=== PATIENT | male | born 1970 | race American Indian/Alaskan Native ===

== ENCOUNTER 2019-03-30 16:59 | Inpatient (IN) | payer SELFPAY ==
--- NOTE | 2019-03-30 19:01 | EDM.PDOC ---
ED HPI GENERAL MEDICAL PROBLEM - General Chief Complaint: Skin Complaint Stated Complaint: ABSCESS IN GROIN AREA Time Seen by Provider: 03/30/19 18:54 Source of Information: Reports: Patient History Limitations: Reports: No Limitations - History of Present Illness INITIAL COMMENTS - FREE TEXT/NARRATIVE: 49-year-old male of [place] ancestry presents to the ED with painful swelling redness left groin and lateral left scrotum for the last 4 days. He believes it started on March 27. He has appreciated that he has flulike symptoms low-grade fever appetite remains good. Last ate about 2 and half hours before coming to the ED. He is a type II diabetic and does not know what his blood sugars are running today. On they were running high greater than 300. Been a type II diabetic x7 years. He has not checked his blood sugars the last 48 hours because of lack of his glucometer. Ports being stranded in [place] for the last day or 2. Hurts to walk. No problems voiding. He has not had similar abscesses before. No previous abdominal surgery. Onset: Gradual Onset Date: 03/27/19 Duration: Day(s):, Getting Worse Location: Reports: Other (Abscess development left lateral scrotum and inguinal area) Quality: Reports: Ache, Throbbing Severity: Moderate Improves with: Reports: Rest Worsens with: Reports: Movement Context: Reports: Other (Doris is occurrence). Denies: Activity, Exercise ( He makes it much worse), Lifting, Sick Contact, Trauma Associated Symptoms: Reports: Fever/Chills, Malaise. Denies: Headaches (Low- grade fever), Loss of Appetite, Nausea/Vomiting, Rash, Seizure, Shortness of Breath, Syncope, Weakness Treatments ABALONE PROCESSOR: Reports: Acetaminophen Left Groin Pain Score (Numeric/FACES): 8 - Related Data Allergies Allergy/AdvReac Type Severity Reaction Status Date / Time No Known Allergies Allergy Verified 03/30/19 23:20 Home Meds: Home Meds Aspirin 81 mg PO DAILY 03/30/19 [History] metFORMIN [Glucophage XR] 1,000 mg PO DAILY 03/30/19 [History] Past Medical History Cardiovascular History: Reports: High Cholesterol, Hypertension Endocrine/Metabolic History: Reports: Diabetes, Type II (7 years.) Other Endocrine/Metabolic History: Controlled with 1000 mg of metformin daily Social & Family History - Tobacco Use Smoking Status *Q: Former Smoker Used Tobacco, but Quit: Yes Month/Year Tobacco Last Used: 1989 - Caffeine Use Caffeine Use: Reports: Coffee, Energy Drinks, Soda - Living Situation & Occupation Living situation: Reports: Occupation: Employed ED ROS GENERAL - Review of Systems Review Of Systems: See Below Constitutional: Reports: Fever, Malaise. Denies: Decreased Appetite, Weight Loss HEENT: Reports: No Symptoms Respiratory: Reports: No Symptoms Cardiovascular: Reports: No Symptoms Endocrine: Reports: Fatigue GI/Abdominal: Reports: No Symptoms : Reports: Frequency, Other (And swelling acute abscess formation lateral left scrotum and inguinal area.) Musculoskeletal: Reports: No Symptoms Skin: Reports: Other (Popping abscess left lateral scrotum with indurated area which is spreading rapidly over the last 12 to 24 hours) Neurological: Reports: No Symptoms Psychiatric: Reports: No Symptoms Hematologic/Lymphatic: Reports: No Symptoms Immunologic: Reports: No Symptoms ED EXAM, SKIN/RASH Exam: See Below Exam Limited By: No Limitations General Appearance: Alert, WD/WN, No Apparent Distress, Other (Patient temperature is measured at 36.1 but clinically he is febrile. Heart rate is 87. Respiratory is 18 BP 148/92 pulse ox 100% on room air.) Eye Exam: Bilateral Eye: Normal Inspection Throat/Mouth: Normal Inspection, Normal Lips, Normal Oropharynx Head: Atraumatic, Normocephalic Neck: Normal Inspection, Supple, Non-Tender, Full Range of Motion. No: Carotid Bruit, Lymphadenopathy (L), Lymphadenopathy (R) Respiratory/Chest: No Respiratory Distress, Lungs Clear, Normal Breath Sounds, No Accessory Muscle Use Cardiovascular: Normal Peripheral Pulses, Regular Rate, Rhythm, No Edema, No Gallop, No Murmur, No Rub Peripheral Pulses: 3+: Posterior Tibial (L), Posterior Tibial (R), Dorsalis Pedis (L), Dorsalis Pedis (R) GI/Abdominal: Normal Bowel Sounds, Soft, Non-Tender, No Organomegaly, No Abnormal Bruit, No Mass, Pelvis Stable, Other (No surgical scars) (Male) Exam: No Hernia, Inguinal Lymphadenopathy ( There is diffuse left- sided inguinal adenopathy), Scrotum Tenderness (L) (And has a indurated area approximately 12 cm x 10 cm left lateral superior scrotum which is warm to palpation and slightly erythematous. There is an area that is pointing towards the inner aspect of the medial thigh.), Other (Anemia is normal.) Extremities: Normal Inspection, Normal Range of Motion, Non-Tender, No Pedal Edema Neurological: Alert, Oriented, CN II-XII Intact, Normal Cognition Psychiatric: Normal Affect, Normal Mood Skin: Warm, Dry, Intact, Normal Color, No Rash EKG INTERPRETATION EKG Date: 03/30/19 Time: 19:28 Rhythm: NSR Rate (Beats/Min): 77 Reading: Normal P-Wave: Enlarged (Left atrial hypertrophy pattern.) QRS: Other (Early R wave transition consider right ventricular hypertrophy versus septal hypertrophy pattern.) ST-T: Normal QT: Normal EKG Interpretation Comments: Abnormal ECG Course - Vital Signs Last Recorded V/S: Last Vital Signs Temp 36.4 C 03/30/19 22:46 Pulse 84 03/30/19 22:46 Resp 20 03/30/19 22:46 BP 129/72 03/30/19 22:46 Pulse Ox 94 L 03/30/19 22:46 - Orders/Labs/Meds Orders: Active Orders 24 hr Category Date Time Status Blood Glucose Check, Bedside [RC] ONETIME Care 03/30/19 19:06 Inactive Pelvis w Cont [CT] Stat Exams 03/30/19 19:06 Taken CULTURE BLOOD [BC] Stat Lab 03/30/19 19:17 Received CULTURE BLOOD [BC] Stat Lab 03/30/19 19:26 Received Blood Culture x2 Reflex Set [OM.PC] Stat Oth 03/30/19 19:05 Ordered Medication Orders Docusate Sodium (Colace) 100 mg PO BID SELINA Hydromorphone HCl (Dilaudid) 1 mg IVPUSH Q4H PRN PRN Reason: Pain (severe 7-10) Piperacillin Sod/Tazobactam (Sod 4.5 gm/ Sodium Chloride) 100 mls @ 25 mls/hr IV Q8H SELINA Vancomycin HCl 2 gm/ Sodium (Chloride) 500 mls @ 250 mls/hr IV Q12H SELINA Oxycodone/Acetaminophen (Percocet 325-5 Mg) 2 tab PO Q6H PRN PRN Reason: Pain (moderate 4-6) Labs: Laboratory Tests 02/23/20 02/23/20 02/23/20 Range/Units 19:17 19:17 19:17 WBC 11.77 H (4.23-9.07) K/mm3 RBC 4.59 L (4.63-6.08) M/mm3 Hgb 12.5 L (13.7-17.5) gm/dl Hct 38.0 L (40.1-51.0) % MCV 82.8 (79.0-92.2) fl MCH 27.2 (25.7-32.2) pg MCHC 32.9 (32.2-35.5) g/dl RDW Std Deviation 40.2 (35.1-43.9) fL Plt Count 265 (163-337) K/mm3 MPV 10.2 (9.4-12.3) fl Neutrophils % (Manual) 69 H (40-60) % Band Neutrophils % 0 (0-10) % Lymphocytes % (Manual) 25 (20-40) % Atypical Lymphs % 2 % Monocytes % (Manual) 2 (2-10) % Eosinophils % (Manual) 2 (0.8-7.0) % Basophils % (Manual) 0 L (0.2-1.2) Toxic Granulation Few Platelet Estimate Adequate RBC Morph Comment Normal PT (9.7-12.0) SECONDS INR APTT (22-31) SECONDS Sodium 138 (136-145) mEq/L Potassium 4.2 (3.5-5.1) mEq/L Chloride 103 (98-107) mEq/L Carbon Dioxide 24 (21-32) mEq/L Anion Gap 15.2 H (5-15) BUN 14 (7-18) mg/dL Creatinine 1.0 (0.7-1.3) mg/dL Est Cr Clr Drug Dosing 87.40 mL/min Estimated GFR (MDRD) > 60 (>60) mL/min BUN/Creatinine Ratio 14.0 (14-18) Glucose 278 H (74-106) mg/dL Hemoglobin A1c 8.40 H (4.50-6.20) % Lactic Acid (0.4-2.0) mmol/L Calcium 8.8 (8.5-10.1) mg/dL Magnesium 2.0 (1.8-2.4) mg/dl Total Bilirubin 0.4 (0.2-1.0) mg/dL AST 20 (15-37) U/L ALT 34 (16-63) U/L Alkaline Phosphatase 113 (46-116) U/L C-Reactive Protein 9.8 H* (<1.0) mg/dL Total Protein 8.4 H (6.4-8.2) g/dl Albumin 3.4 (3.4-5.0) g/dl Globulin 5.0 gm/dL Albumin/Globulin Ratio 0.7 L (1-2) 03/30/19 03/30/19 Range/Units 19:17 19:17 WBC (4.23-9.07) K/mm3 RBC (4.63-6.08) M/mm3 Hgb (13.7-17.5) gm/dl Hct (40.1-51.0) % MCV (79.0-92.2) fl MCH (25.7-32.2) pg MCHC (32.2-35.5) g/dl RDW Std Deviation (35.1-43.9) fL Plt Count (163-337) K/mm3 MPV (9.4-12.3) fl Neutrophils % (Manual) (40-60) % Band Neutrophils % (0-10) % Lymphocytes % (Manual) (20-40) % Atypical Lymphs % % Monocytes % (Manual) (2-10) % Eosinophils % (Manual) (0.8-7.0) % Basophils % (Manual) (0.2-1.2) Toxic Granulation Platelet Estimate RBC Morph Comment PT 10.3 (9.7-12.0) SECONDS INR 0.94 APTT 29 (22-31) SECONDS Sodium (136-145) mEq/L Potassium (3.5-5.1) mEq/L Chloride (98-107) mEq/L Carbon Dioxide (21-32) mEq/L Anion Gap (5-15) BUN (7-18) mg/dL Creatinine (0.7-1.3) mg/dL Est Cr Clr Drug Dosing mL/min Estimated GFR (MDRD) (>60) mL/min BUN/Creatinine Ratio (14-18) Glucose (74-106) mg/dL Hemoglobin A1c (4.50-6.20) % Lactic Acid 1.3 (0.4-2.0) mmol/L Calcium (8.5-10.1) mg/dL Magnesium (1.8-2.4) mg/dl Total Bilirubin (0.2-1.0) mg/dL AST (15-37) U/L ALT (16-63) U/L Alkaline Phosphatase (46-116) U/L C-Reactive Protein (<1.0) mg/dL Total Protein (6.4-8.2) g/dl Albumin (3.4-5.0) g/dl Globulin gm/dL Albumin/Globulin Ratio (1-2) Meds: Medications Generic Name Dose Route Start Last Admin Trade Name Ellie PRN Reason Stop Dose Admin Docusate Sodium 100 mg 03/31/19 09:00 Colace PO BID SELINA Hydromorphone HCl 1 mg 03/30/19 23:53 Dilaudid IVPUSH Q4H PRN Pain (severe 7-10) Piperacillin Sod/Tazobactam 100 mls @ 25 mls/hr 03/31/19 06:00 Sod 4.5 gm/ Sodium Chloride IV Q8H SELINA Vancomycin HCl 2 gm/ Sodium 500 mls @ 250 mls/hr 03/31/19 08:00 Chloride IV Q12H SELINA Oxycodone/Acetaminophen 2 tab 03/30/19 23:53 Percocet 325-5 Mg PO Q6H PRN Pain (moderate 4-6) Discontinued Medications Generic Name Dose Route Start Last Admin Trade Name Ellie PRN Reason Stop Dose Admin Hydromorphone HCl 0.5 mg 03/30/19 19:09 03/30/19 19:48 Dilaudid IVPUSH 03/30/19 19:10 0.5 mg ONETIME ONE Administration Hydromorphone HCl 1 mg 03/30/19 21:09 03/30/19 21:40 Dilaudid IVPUSH 03/30/19 21:10 1 mg ONETIME ONE Administration Linezolid 600 mg/ Premix 300 mls @ 300 mls/hr 03/30/19 19:09 03/30/19 20:13 IV 03/30/19 20:08 300 mls/hr ONETIME ONE Administration Sodium Chloride 1,000 mls @ 500 mls/hr 03/30/19 19:15 03/30/19 19:48 Normal Saline IV 500 mls/hr ASDIRECTED SELINA Administration Vancomycin HCl 2 gm/ Sodium 500 mls @ 250 mls/hr 03/30/19 19:08 03/30/19 19: 56 Chloride IV 03/30/19 19:09 250 mls/hr ONETIME ONE Administration Piperacillin Sod/Tazobactam 100 mls @ 200 mls/hr 03/30/19 22:15 03/30/19 23: 35 Sod 4.5 gm/ Sodium Chloride IV 03/30/19 22:44 200 mls/hr ONETIME ONE Administration Insulin Human Regular Confirm 03/30/19 21:44 03/30/19 21:48 Humulin R Administered 03/30/19 21:45 Not Given Dose 300 unit .ROUTE .STK-MED ONE Insulin Human Regular 8 unit 03/31/19 21:52 Humulin R SUBCUT 03/31/19 21:53 ONETIME ONE Iopamidol 100 ml 03/30/19 20:18 03/30/19 20:27 Isovue-300 (61%) IVPUSH 03/30/19 20:19 100 ml ONETIME ONE Administration Lidocaine/Epinephrine 20 ml 03/30/19 21:20 03/30/19 21:40 Xylocaine 1% With Epinephrine 1:100,000 INJECT 03/30/19 21:21 20 ml ONETIME ONE Administration Metoclopramide HCl 10 mg 03/30/19 19:09 03/30/19 19:48 Reglan IVPUSH 03/30/19 19:10 10 mg ONETIME ONE Administration Sodium Chloride 10 ml 03/30/19 20:18 03/30/19 20:27 Saline Flush FLUSH 10 ml ONETIME PRN Administration KEEP VEIN OPEN Vancomycin HCl Confirm 03/30/19 19:26 03/30/19 20:03 Vancomycin Administered 03/30/19 19:27 Not Given Dose 1 gm .ROUTE .STK-MED ONE - Radiology Interpretation Free Text/Narrative:: 49-year-old male who is type II diabetic controlled with metformin 1000 mg daily for the last 7 years presents to the ED with a developing abscess left hemiscrotum and inguinal area over the last 4 to 5 days. He is febrile to palpation. He is appetite remains good. The area of induration of the left lateral scrotum is 12 cm x 10 cm and needs to be opened and drained. We will therefore have a septic work-up carried out. CT of the pelvis will be performed to involve the scrotum. With DrMoises with Dr Patton-- on-call surgeon and he will see the patient in the ED. Plan will have all the labs collected including blood cultures x2 and a lactic acid done. Is unsure what his blood sugars are running as he is not checked for the last 2 days. We will be normal saline at 500 mils per hour. Will be given Dilaudid 0.5 mg IV for pain relief and Reglan 10 mg IV. - Re-Assessments/Exams Free Text/Narrative Re-Assessment/Exam: 03/30/19 20:24 White count is mildly elevated at 11.77 with 69% neutrophils and no bands cells reported. Hemoglobin is 12.5 with hematocrit of 38.0. MCV is 82.8. Platelet count is 265,000. PT is 10.3 with an INR of 0.94. PTT is 29. Sodium 138 with a potassium of 4.2. Chloride is 103 with a bicarb of 24. Gap is 15.2. BUN is 14 with a creatinine of 1.0. Glucose is elevated at 278. Hemoglobin A1c is 8.40 indicating relatively poor control of his blood sugars. Lactic acid is 1.3. Calcium is 8.8 magnesium is normal at 2.0. Liver function is normal. C-reactive protein is elevated at 9.8. Total protein is 8.4 with an albumin fraction of 3.4. 03/30/19 20:48 T of the pelvis particularly the left hemiscrotum reveals diffuse inflammatory response in the lateral wall of the superior scrotum and mildly in the left inguinal area. There appears to be a small abscess 1.5 cm in diameter involving the scrotal wall with surrounding inflammatory response in the soft tissues. Awaiting radiology report in this regard. 03/30/19 21:10 give the patient Dilaudid 1 mg IV for further pain relief. Dr. Patton is here and plans on incising and draining the abscess at the bedside of possible under local anesthetic. Cultures will be obtained at that time. The plan then will be to admit the patient to the hospital for observation. Due to his blood sugars being 278 I will give him 8 units of regular insulin subcutaneously. 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 - Type 2 diabetes mellitus with other skin complications - Discharge Information *PRESCRIPTION DRUG MONITORING PROGRAM REVIEWED*: Not Applicable *COPY OF PRESCRIPTION DRUG MONITORING REPORT IN PATIENT DAYAMI: Not Applicable Sepsis Event Note - Evaluation Sepsis Screening Result: No Definite Risk - Focused Exam Vital Signs: Vital Signs Temp Pulse Resp BP Pulse Ox 03/30/19 17:11 36.1 C 87 18 148/92 H 100 Date Exam was Performed: 03/31/19 Time Exam was Performed: 02:50 - My Orders Last 24 Hours: My Active Orders 03/30/19 19:05 Blood Culture x2 Reflex Set [OM.PC] Stat 03/30/19 19:06 Blood Glucose Check, Bedside [RC] ONETIME Pelvis w Cont [CT] Stat 03/30/19 19:17 CULTURE BLOOD [BC] Stat 03/30/19 19:26 CULTURE BLOOD [BC] Stat - Assessment/Plan Last 24 Hours: My Active Orders 03/30/19 19:05 Blood Culture x2 Reflex Set [OM.PC] Stat 03/30/19 19:06 Blood Glucose Check, Bedside [RC] ONETIME Pelvis w Cont [CT] Stat 03/30/19 19:17 CULTURE BLOOD [BC] Stat 03/30/19 19:26 CULTURE BLOOD [BC] Stat
[2019-03-30] MEDS ORDERED: Vancomycin 2 GM in Sodium Chloride 0.9% 500 ML IV ONE (19:08)
[2019-03-30] MEDS ORDERED: Linezolid 600 MG in Premix Bag 1 BAG IV ONE (19:09)
[2019-03-30] MEDS ORDERED: Metoclopramide 10 MG/2 ML SDV IVPUSH ONE (19:09)
[2019-03-30] MEDS ORDERED: HYDROmorphone 0.5 MG/0.5 ML Syringe IVPUSH ONE (19:09)
[2019-03-30] MEDS ORDERED: Sodium Chloride 0.9% 1,000 ML IV SCH (19:15)
[2019-03-30] MEDS ORDERED: Vancomycin 1 GM SDV ONE (19:26)
[2019-03-30 20:06] LABS: HEMOGLOBIN A1C 8.4 % (4.50-6.20)
[2019-03-30] MEDS ORDERED: Iopamidol 612 MG/ML 100 ML Bottle IVPUSH ONE (20:18)
[2019-03-30] MEDS ORDERED: Sodium Chloride 0.9% 10 ML Syringe FLUSH PRN (20:18)
[2019-03-30] MEDS ORDERED: HYDROmorphone 1 MG/ML Syringe IVPUSH ONE (21:09)
--- NOTE | 2019-03-30 21:19 | PCM.CONS ---
H&P History of Present Illness - General Date of Service: 03/30/19 Source of Information: Patient History Limitations: Reports: No Limitations - History of Present Illness Initial Comments - Free Text/Narative: The patient has left groin abscess and cellulitis. He noticed some left groin pain on 03/27/19. Initially it was mild but progressed over the ensuing days. Denies any fevers or chills. Pain become worse to 10/10 today and was having trouble walking so he decided to come to the ED. He has poorly controlled diabetes, HTN, HLD. Reports that he has had smaller boils on his abdominal wall that usually disappear on their own. in the ED WBC was 11.7, Gluc 278. Rest of labs were normal. CT reveals extensive left scrotal cellulitis and a small 2-3 cm abscess. No subcutaneous air. Onset of Symptoms: Reports: Gradual Duration of Symptoms: Reports: Getting Worse Left Groin Pain Score (Numeric/FACES): 8 - Related Data Allergies/Adverse Reactions: Allergies Allergy/AdvReac Type Severity Reaction Status Date / Time No Known Allergies Allergy Verified 03/30/19 17:14 Home Medications: Home Meds metFORMIN [Glucophage XR] 1,000 mg PO DAILY 03/30/19 [History] Past Medical History Cardiovascular History: Reports: High Cholesterol, Hypertension Endocrine/Metabolic History: Reports: Diabetes, Type II (7 years.) Other Endocrine/Metabolic History: Controlled with 1000 mg of metformin daily Social & Family History - Tobacco Use Smoking Status *Q: Former Smoker Used Tobacco, but Quit: Yes Month/Year Tobacco Last Used: 1989 - Caffeine Use Caffeine Use: Reports: Coffee, Energy Drinks, Soda - Living Situation & Occupation Living situation: Reports: Occupation: Employed Exam - Vital Signs Vital Signs: Last Vital Signs Temp 97.0 F 03/30/19 17:11 Pulse 87 03/30/19 17:11 Resp 18 03/30/19 17:11 BP 148/92 H 03/30/19 17:11 Pulse Ox 100 03/30/19 17:11 Weight: 128.82 kg - Patient Data Lab Results Last 24 hrs: Laboratory Results - last 24 hr 03/30/19 03/30/19 03/30/19 Range/Units 19:17 19:17 19:17 WBC 11.77 H (4.23-9.07) K/mm3 RBC 4.59 L (4.63-6.08) M/mm3 Hgb 12.5 L (13.7-17.5) gm/dl Hct 38.0 L (40.1-51.0) % MCV 82.8 (79.0-92.2) fl MCH 27.2 (25.7-32.2) pg MCHC 32.9 (32.2-35.5) g/dl RDW Std Deviation 40.2 (35.1-43.9) fL Plt Count 265 (163-337) K/mm3 MPV 10.2 (9.4-12.3) fl Neutrophils % (Manual) 69 H (40-60) % Band Neutrophils % 0 (0-10) % Lymphocytes % (Manual) 25 (20-40) % Atypical Lymphs % 2 % Monocytes % (Manual) 2 (2-10) % Eosinophils % (Manual) 2 (0.8-7.0) % Basophils % (Manual) 0 L (0.2-1.2) Toxic Granulation Few Platelet Estimate Adequate RBC Morph Comment Normal PT (9.7-12.0) SECONDS INR APTT (22-31) SECONDS Sodium 138 (136-145) mEq/L Potassium 4.2 (3.5-5.1) mEq/L Chloride 103 (98-107) mEq/L Carbon Dioxide 24 (21-32) mEq/L Anion Gap 15.2 H (5-15) BUN 14 (7-18) mg/dL Creatinine 1.0 (0.7-1.3) mg/dL Est Cr Clr Drug Dosing 87.40 mL/min Estimated GFR (MDRD) > 60 (>60) mL/min BUN/Creatinine Ratio 14.0 (14-18) Glucose 278 H (74-106) mg/dL Hemoglobin A1c 8.40 H (4.50-6.20) % Lactic Acid (0.4-2.0) mmol/L Calcium 8.8 (8.5-10.1) mg/dL Magnesium 2.0 (1.8-2.4) mg/dl Total Bilirubin 0.4 (0.2-1.0) mg/dL AST 20 (15-37) U/L ALT 34 (16-63) U/L Alkaline Phosphatase 113 (46-116) U/L C-Reactive Protein 9.8 H* (<1.0) mg/dL Total Protein 8.4 H (6.4-8.2) g/dl Albumin 3.4 (3.4-5.0) g/dl Globulin 5.0 gm/dL Albumin/Globulin Ratio 0.7 L (1-2) 03/30/19 03/30/19 Range/Units 19:17 19:17 WBC (4.23-9.07) K/mm3 RBC (4.63-6.08) M/mm3 Hgb (13.7-17.5) gm/dl Hct (40.1-51.0) % MCV (79.0-92.2) fl MCH (25.7-32.2) pg MCHC (32.2-35.5) g/dl RDW Std Deviation (35.1-43.9) fL Plt Count (163-337) K/mm3 MPV (9.4-12.3) fl Neutrophils % (Manual) (40-60) % Band Neutrophils % (0-10) % Lymphocytes % (Manual) (20-40) % Atypical Lymphs % % Monocytes % (Manual) (2-10) % Eosinophils % (Manual) (0.8-7.0) % Basophils % (Manual) (0.2-1.2) Toxic Granulation Platelet Estimate RBC Morph Comment PT 10.3 (9.7-12.0) SECONDS INR 0.94 APTT 29 (22-31) SECONDS Sodium (136-145) mEq/L Potassium (3.5-5.1) mEq/L Chloride (98-107) mEq/L Carbon Dioxide (21-32) mEq/L Anion Gap (5-15) BUN (7-18) mg/dL Creatinine (0.7-1.3) mg/dL Est Cr Clr Drug Dosing mL/min Estimated GFR (MDRD) (>60) mL/min BUN/Creatinine Ratio (14-18) Glucose (74-106) mg/dL Hemoglobin A1c (4.50-6.20) % Lactic Acid 1.3 (0.4-2.0) mmol/L Calcium (8.5-10.1) mg/dL Magnesium (1.8-2.4) mg/dl Total Bilirubin (0.2-1.0) mg/dL AST (15-37) U/L ALT (16-63) U/L Alkaline Phosphatase (46-116) U/L C-Reactive Protein (<1.0) mg/dL Total Protein (6.4-8.2) g/dl Albumin (3.4-5.0) g/dl Globulin gm/dL Albumin/Globulin Ratio (1-2) Result Diagrams: 03/30/19 19:17 03/30/19 19:17 Sepsis Event Note - Evaluation Sepsis Screening Result: No Definite Risk - Focused Exam Vital Signs: Vital Signs Temp Pulse Resp BP Pulse Ox 03/30/19 17:11 97.0 F 87 18 148/92 H 100 Date Exam was Performed: 03/30/19 Time Exam was Performed: 21:14
[2019-03-30] MEDS ORDERED: Lidocaine 1% with EPINEPHrine 1:100,000 20 ML MDV INJECT ONE (21:20)
[2019-03-30] MEDS ORDERED: Insulin Regular, Human 100 Units/ML 3 ML Vial ONE (21:44)
--- NOTE | 2019-03-30 21:50 | PCM.HP.2 ---
H&P History of Present Illness - General Date of Service: 03/30/19 Source of Information: Patient History Limitations: Reports: No Limitations - History of Present Illness Initial Comments - Free Text/Narative: The patient has left groin abscess and cellulitis. He noticed some left groin pain on 03/27/19. Initially it was mild but progressed over the ensuing days. Denies any fevers or chills. Pain become worse to 10/10 today and was having trouble walking so he decided to come to the ED. He has poorly controlled diabetes, HTN, HLD. Reports that he has had smaller boils on his abdominal wall that usually disappear on their own. in the ED WBC was 11.7, Gluc 278. Rest of labs were normal. CT reveals extensive left scrotal cellulitis and a small 2-3 cm abscess. No subcutaneous air. Onset of Symptoms: Reports: Gradual Duration of Symptoms: Reports: Day(s):, Getting Worse Location: Reports: Other (left scrotum) Quality: Reports: Sharp Severity: Severe Improves with: Reports: Immobilization Worsens with: Reports: Movement Left Groin Pain Score (Numeric/FACES): 8 - Related Data Allergies/Adverse Reactions: Allergies Allergy/AdvReac Type Severity Reaction Status Date / Time No Known Allergies Allergy Verified 03/30/19 17:14 Home Medications: Home Meds metFORMIN [Glucophage XR] 1,000 mg PO DAILY 03/30/19 [History] Past Medical History Cardiovascular History: Reports: High Cholesterol, Hypertension Endocrine/Metabolic History: Reports: Diabetes, Type II (7 years.) Other Endocrine/Metabolic History: Controlled with 1000 mg of metformin daily Social & Family History - Tobacco Use Smoking Status *Q: Former Smoker Used Tobacco, but Quit: Yes Month/Year Tobacco Last Used: 1989 - Caffeine Use Caffeine Use: Reports: Coffee, Energy Drinks, Soda - Living Situation & Occupation Living situation: Reports: Occupation: Employed H&P Review of Systems - Review of Systems: Review Of Systems: See Below General: Reports: No Symptoms HEENT: Reports: No Symptoms Pulmonary: Reports: No Symptoms Cardiovascular: Reports: No Symptoms Gastrointestinal: Reports: No Symptoms Genitourinary: Reports: No Symptoms Musculoskeletal: Reports: No Symptoms Skin: Reports: No Symptoms Psychiatric: Reports: No Symptoms Exam - Exam Exam: See Below - Vital Signs Vital Signs: Last Vital Signs Temp 97.0 F 03/30/19 17:11 Pulse 87 03/30/19 17:11 Resp 18 03/30/19 17:11 BP 148/92 H 03/30/19 17:11 Pulse Ox 100 03/30/19 17:11 Weight: 128.82 kg - Exam General: Alert, Oriented, Cooperative, Mild Distress HEENT: Conjunctiva Clear Neck: Supple, Trachea Midline Lungs: Clear to Auscultation, Normal Respiratory Effort Cardiovascular: Regular Rate, Regular Rhythm, Normal S1, Normal S2 GI/Abdominal Exam: Normal Bowel Sounds, Soft, Non-Tender, No Organomegaly (Male) Exam: Scrotal Swelling (left), Other (tenderness and induration on the left scrotum) Skin: Other (induration on the left scrotum) - Patient Data Lab Results Last 24 hrs: Laboratory Results - last 24 hr 03/30/19 03/30/19 03/30/19 Range/Units 19:17 19:17 19:17 WBC 11.77 H (4.23-9.07) K/mm3 RBC 4.59 L (4.63-6.08) M/mm3 Hgb 12.5 L (13.7-17.5) gm/dl Hct 38.0 L (40.1-51.0) % MCV 82.8 (79.0-92.2) fl MCH 27.2 (25.7-32.2) pg MCHC 32.9 (32.2-35.5) g/dl RDW Std Deviation 40.2 (35.1-43.9) fL Plt Count 265 (163-337) K/mm3 MPV 10.2 (9.4-12.3) fl Neutrophils % (Manual) 69 H (40-60) % Band Neutrophils % 0 (0-10) % Lymphocytes % (Manual) 25 (20-40) % Atypical Lymphs % 2 % Monocytes % (Manual) 2 (2-10) % Eosinophils % (Manual) 2 (0.8-7.0) % Basophils % (Manual) 0 L (0.2-1.2) Toxic Granulation Few Platelet Estimate Adequate RBC Morph Comment Normal PT (9.7-12.0) SECONDS INR APTT (22-31) SECONDS Sodium 138 (136-145) mEq/L Potassium 4.2 (3.5-5.1) mEq/L Chloride 103 (98-107) mEq/L Carbon Dioxide 24 (21-32) mEq/L Anion Gap 15.2 H (5-15) BUN 14 (7-18) mg/dL Creatinine 1.0 (0.7-1.3) mg/dL Est Cr Clr Drug Dosing 87.40 mL/min Estimated GFR (MDRD) > 60 (>60) mL/min BUN/Creatinine Ratio 14.0 (14-18) Glucose 278 H (74-106) mg/dL Hemoglobin A1c 8.40 H (4.50-6.20) % Lactic Acid (0.4-2.0) mmol/L Calcium 8.8 (8.5-10.1) mg/dL Magnesium 2.0 (1.8-2.4) mg/dl Total Bilirubin 0.4 (0.2-1.0) mg/dL AST 20 (15-37) U/L ALT 34 (16-63) U/L Alkaline Phosphatase 113 (46-116) U/L C-Reactive Protein 9.8 H* (<1.0) mg/dL Total Protein 8.4 H (6.4-8.2) g/dl Albumin 3.4 (3.4-5.0) g/dl Globulin 5.0 gm/dL Albumin/Globulin Ratio 0.7 L (1-2) 03/30/19 03/30/19 Range/Units 19:17 19:17 WBC (4.23-9.07) K/mm3 RBC (4.63-6.08) M/mm3 Hgb (13.7-17.5) gm/dl Hct (40.1-51.0) % MCV (79.0-92.2) fl MCH (25.7-32.2) pg MCHC (32.2-35.5) g/dl RDW Std Deviation (35.1-43.9) fL Plt Count (163-337) K/mm3 MPV (9.4-12.3) fl Neutrophils % (Manual) (40-60) % Band Neutrophils % (0-10) % Lymphocytes % (Manual) (20-40) % Atypical Lymphs % % Monocytes % (Manual) (2-10) % Eosinophils % (Manual) (0.8-7.0) % Basophils % (Manual) (0.2-1.2) Toxic Granulation Platelet Estimate RBC Morph Comment PT 10.3 (9.7-12.0) SECONDS INR 0.94 APTT 29 (22-31) SECONDS Sodium (136-145) mEq/L Potassium (3.5-5.1) mEq/L Chloride (98-107) mEq/L Carbon Dioxide (21-32) mEq/L Anion Gap (5-15) BUN (7-18) mg/dL Creatinine (0.7-1.3) mg/dL Est Cr Clr Drug Dosing mL/min Estimated GFR (MDRD) (>60) mL/min BUN/Creatinine Ratio (14-18) Glucose (74-106) mg/dL Hemoglobin A1c (4.50-6.20) % Lactic Acid 1.3 (0.4-2.0) mmol/L Calcium (8.5-10.1) mg/dL Magnesium (1.8-2.4) mg/dl Total Bilirubin (0.2-1.0) mg/dL AST (15-37) U/L ALT (16-63) U/L Alkaline Phosphatase (46-116) U/L C-Reactive Protein (<1.0) mg/dL Total Protein (6.4-8.2) g/dl Albumin (3.4-5.0) g/dl Globulin gm/dL Albumin/Globulin Ratio (1-2) Result Diagrams: 03/30/19 19:17 03/30/19 19:17 Sepsis Event Note - Evaluation Sepsis Screening Result: No Definite Risk - Focused Exam Vital Signs: Vital Signs Temp Pulse Resp BP Pulse Ox 03/30/19 17:11 97.0 F 87 18 148/92 H 100 Date Exam was Performed: 03/30/19 Time Exam was Performed: 21:44 Problem List Initiated/Reviewed/Updated: No Orders Last 24hrs: Active Orders 24 hr Category Date Time Status Blood Glucose Check, Bedside [RC] ONETIME Care 03/30/19 19:06 Active EKG Documentation Completion [RC] STAT Care 03/30/19 19:04 Active Pelvis w Cont [CT] Stat Exams 03/30/19 19:06 Taken CULTURE BLOOD [BC] Stat Lab 03/30/19 19:17 Received CULTURE BLOOD [BC] Stat Lab 03/30/19 19:26 Received Insulin Regular, Human [HumuLIN R] Med 03/31/19 21:09 Once 8 unit SUBCUT ONETIME ONE Sodium Chloride 0.9% [Normal Saline] 1,000 ml Med 03/30/19 19:15 Active IV ASDIRECTED Sodium Chloride 0.9% [Saline Flush] Med 03/30/19 20:18 Active 10 ml FLUSH ONETIME PRN Blood Culture x2 Reflex Set [OM.PC] Stat Oth 03/30/19 19:05 Ordered Medication Orders Sodium Chloride (Normal Saline) 1,000 mls @ 500 mls/hr IV ASDIRECTED [facility] Last Admin: 03/30/19 19:48 Dose: 500 mls/hr Insulin Human Regular (Humulin R) 8 unit SUBCUT ONETIME ONE Stop: 03/31/19 21:10 Sodium Chloride (Saline Flush) 10 ml FLUSH ONETIME PRN PRN Reason: KEEP VEIN OPEN Last Admin: 03/30/19 20:27 Dose: 10 ml Assessment/Plan Comment:: Left scrotal abscess and cellulitis. I&D performed in the emergency department. Pus drained, cultures sent, wound packed with iodoform. - Will continue IV Vanc and Zosyn - BID bressing changes with iodoform - Pain control - Resume home meds - Regular diet - Sliding scale insulin and blood glucose checks. - Mortality Measure Prognosis:: Good
[2019-03-30] MEDS ORDERED: Piperacillin/Tazobactam 4.5 GM in Sodium Chloride 0.9% 100 ML IV ONE (22:15)
[2019-03-31] MEDS: Piperacillin/Tazobactam 4.5 GM in Sodium Chloride 0.9% 100 ML IV SCH ×2 (05:21→14:48)
--- NOTE | 2019-03-31 07:08 | CT ---
CT pelvis Technique: Multiple axial sections through the pelvis and groin areas were obtained. Intravenous contrast was utilized. Findings: Inflammatory change is noted within the lower left inguinal region extending into the left side of the scrotum. Within this area of inflammation there are 2 low density areas being seen next to each other which are felt compatible with small developing abscesses. These measure 1.6 cm and 2.1 cm in size. No intrapelvic abnormality is seen. Small fat-containing umbilical hernia is noted. Right inguinal region appears unremarkable. Impression: 1. Inflammatory change within the lower left inguinal region extending into the left side of the scrotum. 2. Two small low density abnormalities are seen within this area of inflammation which are felt compatible with developing small abscesses measuring 1.6 cm 2.1 cm. 3. No additional abnormality is appreciated. Diagnostic code #3 This report was dictated in [place] Standard Time MTDD
[2019-03-31] MEDS: Docusate Sodium 100 MG Cap PO SCH ×2 (08:40→21:45)
[2019-03-31] MEDS: Vancomycin 2 GM in Sodium Chloride 0.9% 500 ML IV SCH ×2 (09:46→21:44)
--- NOTE | 2019-03-31 09:47 | PCM.PRNOTE ---
- Free Text/Narrative Note: Date of procedure 03/30/2019 Surgeon: Akanksha Patton MD Preop diagnosis: Left upper scrotal soft tissue infection with abscess Post of diagnosis: Same Procedure: Incision and Drainage of left scrotal Abscess Anesthesia: Local injection of 1% Lidocaine Indications: Soft tissue infection with associated abscess in the left scrotum Details: The patient was in supine position. The area was prepped with Chorhexidine and Betadine and draped. Then 7 mL of 1% Lidocaine with epinephrine was injected. using #11 Scalpel blade, a 1 cm incision was made at the area of fluctuance. Purulent drainage was expressed. Swabs were taken for cultures. Loculations were broken bluntly with forceps and gauze. Then 1/2 Inch iodoform gauze was used to pack the wound. The wound was dressed with 4 x 4 gauze and tape. This marked the end of the procedure. The patient tolerated the procedure well. He will be admitted for IV antibiotics and dressing changes.
[2019-03-31] MEDS: Aspirin 81 MG Tab.Chew PO SCH (10:18)
[2019-03-31] MEDS: metFORMIN 500 MG Tab PO SCH (10:19)
[2019-03-31] MEDS: HYDROmorphone 1 MG/ML Syringe IVPUSH PRN ×2 (10:31→22:00)
[2019-03-31] MEDS: glipiZIDE 5 MG Tab.ER PO SCH (12:21)
[2019-03-31] MEDS: Insulin Lispro 100 Units/ML 3 ML Vial SUBCUT SCH ×3 (12:22→21:58)
[2019-03-31] MEDS: Lisinopril 20 MG Tab PO SCH (12:22)
--- NOTE | 2019-03-31 15:22 | PCM.SURGPN ---
- General Info Date of Service: 03/31/19 POD#: 1 Post-Op Diagnosis: Soft tissue infection of the left upper scrotum Functional Status: Reports: Pain Controlled, Tolerating Diet, Ambulating, Urinating - Review of Systems General: Reports: No Symptoms HEENT: Reports: No Symptoms Pulmonary: Reports: No Symptoms Cardiovascular: Reports: No Symptoms Gastrointestinal: Reports: No Symptoms Genitourinary: Reports: Other (left scrotal cellulitis) Skin: Reports: No Symptoms - Patient Data Vitals - Most Recent: Last Vital Signs Temp 98.2 F 03/31/19 11:27 Pulse 80 03/31/19 11:27 Resp 18 03/31/19 11:27 BP 135/80 03/31/19 12:22 Pulse Ox 96 03/31/19 11:27 Weight - Most Recent: 128.412 kg I&O - Last 24 Hours: Intake & Output 03/31/19 03/31/19 03/31/19 06:59 14:59 22:59 Intake Total 500 160 Balance 500 160 Lab Results Last 24 Hrs: Laboratory Results - last 24 hr 03/30/19 03/30/19 03/30/19 Range/Units 19:17 19:17 19:17 WBC 11.77 H (4.23-9.07) K/mm3 RBC 4.59 L (4.63-6.08) M/mm3 Hgb 12.5 L (13.7-17.5) gm/dl Hct 38.0 L (40.1-51.0) % MCV 82.8 (79.0-92.2) fl MCH 27.2 (25.7-32.2) pg MCHC 32.9 (32.2-35.5) g/dl RDW Std Deviation 40.2 (35.1-43.9) fL Plt Count 265 (163-337) K/mm3 MPV 10.2 (9.4-12.3) fl Neut % (Auto) (34.0-67.9) % Lymph % (Auto) (21.8-53.1) % Will % (Auto) (5.3-12.2) % Eos % (Auto) (0.8-7.0) Baso % (Auto) (0.1-1.2) % Neut # (Auto) (1.78-5.38) K/mm3 Lymph # (Auto) (1.32-3.57) K/mm3 Will # (Auto) (0.30-0.82) K/mm3 Eos # (Auto) (0.04-0.54) K/mm3 Baso # (Auto) (0.01-0.08) K/mm3 Neutrophils % (Manual) 69 H (40-60) % Band Neutrophils % 0 (0-10) % Lymphocytes % (Manual) 25 (20-40) % Atypical Lymphs % 2 % Monocytes % (Manual) 2 (2-10) % Eosinophils % (Manual) 2 (0.8-7.0) % Basophils % (Manual) 0 L (0.2-1.2) Toxic Granulation Few Platelet Estimate Adequate RBC Morph Comment Normal PT (9.7-12.0) SECONDS INR APTT (22-31) SECONDS Sodium 138 (136-145) mEq/L Potassium 4.2 (3.5-5.1) mEq/L Chloride 103 (98-107) mEq/L Carbon Dioxide 24 (21-32) mEq/L Anion Gap 15.2 H (5-15) BUN 14 (7-18) mg/dL Creatinine 1.0 (0.7-1.3) mg/dL Est Cr Clr Drug Dosing 87.40 mL/min Estimated GFR (MDRD) > 60 (>60) mL/min BUN/Creatinine Ratio 14.0 (14-18) Glucose 278 H (74-106) mg/dL POC Glucose (70-105) mg/dL Hemoglobin A1c 8.40 H (4.50-6.20) % Lactic Acid (0.4-2.0) mmol/L Calcium 8.8 (8.5-10.1) mg/dL Magnesium 2.0 (1.8-2.4) mg/dl Total Bilirubin 0.4 (0.2-1.0) mg/dL AST 20 (15-37) U/L ALT 34 (16-63) U/L Alkaline Phosphatase 113 (46-116) U/L C-Reactive Protein 9.8 H* (<1.0) mg/dL Total Protein 8.4 H (6.4-8.2) g/dl Albumin 3.4 (3.4-5.0) g/dl Globulin 5.0 gm/dL Albumin/Globulin Ratio 0.7 L (1-2) 03/30/19 03/30/19 03/31/19 Range/Units 19:17 19:17 04:51 WBC 10.95 H (4.23-9.07) K/mm3 RBC 4.45 L (4.63-6.08) M/mm3 Hgb 12.0 L (13.7-17.5) gm/dl Hct 37.0 L (40.1-51.0) % MCV 83.1 (79.0-92.2) fl MCH 27.0 (25.7-32.2) pg MCHC 32.4 (32.2-35.5) g/dl RDW Std Deviation 41.0 (35.1-43.9) fL Plt Count 272 (163-337) K/mm3 MPV 10.1 (9.4-12.3) fl Neut % (Auto) 70.2 H (34.0-67.9) % Lymph % (Auto) 20.2 L (21.8-53.1) % Will % (Auto) 7.9 (5.3-12.2) % Eos % (Auto) 1.3 (0.8-7.0) Baso % (Auto) 0.1 (0.1-1.2) % Neut # (Auto) 7.69 H (1.78-5.38) K/mm3 Lymph # (Auto) 2.21 (1.32-3.57) K/mm3 Will # (Auto) 0.87 H (0.30-0.82) K/mm3 Eos # (Auto) 0.14 (0.04-0.54) K/mm3 Baso # (Auto) 0.01 (0.01-0.08) K/mm3 Neutrophils % (Manual) (40-60) % Band Neutrophils % (0-10) % Lymphocytes % (Manual) (20-40) % Atypical Lymphs % % Monocytes % (Manual) (2-10) % Eosinophils % (Manual) (0.8-7.0) % Basophils % (Manual) (0.2-1.2) Toxic Granulation Platelet Estimate RBC Morph Comment PT 10.3 (9.7-12.0) SECONDS INR 0.94 APTT 29 (22-31) SECONDS Sodium (136-145) mEq/L Potassium (3.5-5.1) mEq/L Chloride (98-107) mEq/L Carbon Dioxide (21-32) mEq/L Anion Gap (5-15) BUN (7-18) mg/dL Creatinine (0.7-1.3) mg/dL Est Cr Clr Drug Dosing mL/min Estimated GFR (MDRD) (>60) mL/min BUN/Creatinine Ratio (14-18) Glucose (74-106) mg/dL POC Glucose (70-105) mg/dL Hemoglobin A1c (4.50-6.20) % Lactic Acid 1.3 (0.4-2.0) mmol/L Calcium (8.5-10.1) mg/dL Magnesium (1.8-2.4) mg/dl Total Bilirubin (0.2-1.0) mg/dL AST (15-37) U/L ALT (16-63) U/L Alkaline Phosphatase (46-116) U/L C-Reactive Protein (<1.0) mg/dL Total Protein (6.4-8.2) g/dl Albumin (3.4-5.0) g/dl Globulin gm/dL Albumin/Globulin Ratio (1-2) 03/31/19 03/31/19 03/31/19 Range/Units 04:51 06:42 11:04 WBC (4.23-9.07) K/mm3 RBC (4.63-6.08) M/mm3 Hgb (13.7-17.5) gm/dl Hct (40.1-51.0) % MCV (79.0-92.2) fl MCH (25.7-32.2) pg MCHC (32.2-35.5) g/dl RDW Std Deviation (35.1-43.9) fL Plt Count (163-337) K/mm3 MPV (9.4-12.3) fl Neut % (Auto) (34.0-67.9) % Lymph % (Auto) (21.8-53.1) % Will % (Auto) (5.3-12.2) % Eos % (Auto) (0.8-7.0) Baso % (Auto) (0.1-1.2) % Neut # (Auto) (1.78-5.38) K/mm3 Lymph # (Auto) (1.32-3.57) K/mm3 Will # (Auto) (0.30-0.82) K/mm3 Eos # (Auto) (0.04-0.54) K/mm3 Baso # (Auto) (0.01-0.08) K/mm3 Neutrophils % (Manual) (40-60) % Band Neutrophils % (0-10) % Lymphocytes % (Manual) (20-40) % Atypical Lymphs % % Monocytes % (Manual) (2-10) % Eosinophils % (Manual) (0.8-7.0) % Basophils % (Manual) (0.2-1.2) Toxic Granulation Platelet Estimate RBC Morph Comment PT (9.7-12.0) SECONDS INR APTT (22-31) SECONDS Sodium 136 (136-145) mEq/L Potassium 4.0 (3.5-5.1) mEq/L Chloride 101 (98-107) mEq/L Carbon Dioxide 23 (21-32) mEq/L Anion Gap 16.0 H (5-15) BUN 9 (7-18) mg/dL Creatinine 0.8 (0.7-1.3) mg/dL Est Cr Clr Drug Dosing 109.25 mL/min Estimated GFR (MDRD) > 60 (>60) mL/min BUN/Creatinine Ratio 11.3 L (14-18) Glucose 168 H (74-106) mg/dL POC Glucose 172 H 214 H (70-105) mg/dL Hemoglobin A1c (4.50-6.20) % Lactic Acid (0.4-2.0) mmol/L Calcium 8.4 L (8.5-10.1) mg/dL Magnesium (1.8-2.4) mg/dl Total Bilirubin (0.2-1.0) mg/dL AST (15-37) U/L ALT (16-63) U/L Alkaline Phosphatase (46-116) U/L C-Reactive Protein (<1.0) mg/dL Total Protein (6.4-8.2) g/dl Albumin (3.4-5.0) g/dl Globulin gm/dL Albumin/Globulin Ratio (1-2) [place] Results Last 24 Hrs: Microbiology 03/30/19 21:40 Gram Stain - Final Scrotum - Left Anaerobic Culture - Preliminary Med Orders - Current: Current Medications Aspirin (Aspirin) 81 mg PO DAILY [facility] Last Admin: 03/31/19 10:18 Dose: 81 mg Docusate Sodium (Colace) 100 mg PO BID [facility] Last Admin: 03/31/19 08:40 Dose: 100 mg Glipizide (Glucotrol Xl) 10 mg PO DAILY [facility] Last Admin: 03/31/19 12:21 Dose: 10 mg Hydromorphone HCl (Dilaudid) 1 mg IVPUSH Q4H PRN PRN Reason: Pain (severe 7-10) Last Admin: 03/31/19 10:31 Dose: 1 mg Piperacillin Sod/Tazobactam (Sod 4.5 gm/ Sodium Chloride) 100 mls @ 25 mls/hr IV Q8H [facility] Last Admin: 03/31/19 14:48 Dose: 25 mls/hr Vancomycin HCl 2 gm/ Sodium (Chloride) 500 mls @ 250 mls/hr IV Q12H [facility] Last Admin: 03/31/19 09:46 Dose: 250 mls/hr Insulin Human Lispro (Humalog) 0 unit SUBCUT QIDACANDBED [facility]; Protocol Last Admin: 03/31/19 12:22 Dose: 2 unit Lisinopril (Prinivil) 20 mg PO DAILY [facility] Last Admin: 03/31/19 12:22 Dose: 20 mg Metformin HCl (Glucophage) 1,000 mg PO DAILY [facility] Last Admin: 03/31/19 10:19 Dose: 1,000 mg Oxycodone/Acetaminophen (Percocet 325-5 Mg) 2 tab PO Q6H PRN PRN Reason: Pain (moderate 4-6) Simvastatin (Zocor) 10 mg PO BEDTIME [facility] Discontinued Medications Hydromorphone HCl (Dilaudid) 0.5 mg IVPUSH ONETIME ONE Stop: 03/30/19 19:10 Last Admin: 03/30/19 19:48 Dose: 0.5 mg Hydromorphone HCl (Dilaudid) 1 mg IVPUSH ONETIME ONE Stop: 03/30/19 21:10 Last Admin: 03/30/19 21:40 Dose: 1 mg Linezolid 600 mg/ Premix 300 mls @ 300 mls/hr IV ONETIME ONE Stop: 03/30/19 20:08 Last Admin: 03/30/19 20:13 Dose: 300 mls/hr Sodium Chloride (Normal Saline) 1,000 mls @ 500 mls/hr IV ASDIRECTED [facility] Last Admin: 03/30/19 19:48 Dose: 500 mls/hr Vancomycin HCl 2 gm/ Sodium (Chloride) 500 mls @ 250 mls/hr IV ONETIME ONE Stop: 03/30/19 19:09 Last Admin: 03/30/19 19:56 Dose: 250 mls/hr Piperacillin Sod/Tazobactam (Sod 4.5 gm/ Sodium Chloride) 100 mls @ 200 mls/hr IV ONETIME ONE Stop: 03/30/19 22:44 Last Admin: 03/30/19 23:35 Dose: 200 mls/hr Insulin Human Regular (Humulin R) Confirm Administered Dose 300 unit .ROUTE .STK -MED ONE Stop: 03/30/19 21:45 Last Admin: 03/30/19 21:48 Dose: Not Given Insulin Human Regular (Humulin R) 8 unit SUBCUT ONETIME ONE Stop: 03/31/19 21:53 Iopamidol (Isovue-300 (61%)) 100 ml IVPUSH ONETIME ONE Stop: 03/30/19 20:19 Last Admin: 03/30/19 20:27 Dose: 100 ml Lidocaine/Epinephrine (Xylocaine 1% With Epinephrine 1:100,000) 20 ml INJECT ONETIME ONE Stop: 03/30/19 21:21 Last Admin: 03/30/19 21:40 Dose: 20 ml Metoclopramide HCl (Reglan) 10 mg IVPUSH ONETIME ONE Stop: 03/30/19 19:10 Last Admin: 03/30/19 19:48 Dose: 10 mg Sodium Chloride (Saline Flush) 10 ml FLUSH ONETIME PRN PRN Reason: KEEP VEIN OPEN Last Admin: 03/30/19 20:27 Dose: 10 ml Vancomycin HCl (Vancomycin) Confirm Administered Dose 1 gm .ROUTE .STK-MED ONE Stop: 03/30/19 19:27 Last Admin: 03/30/19 20:03 Dose: Not Given - Exam Wound/Incisions: Healing Well, Drainage (present), Erythema Improving General: Alert, Oriented, Cooperative Extremities: Other (wound with packing, overlying dressings are stained with drainage with appears to be serosanguinous, cellulitis and induration still present in the left upper scrotum) Sepsis Event Note - Evaluation Sepsis Screening Result: No Definite Risk - Focused Exam Vital Signs: Vital Signs Temp Pulse Resp BP Pulse Ox 03/31/19 12:22 135/80 03/31/19 11:27 98.2 F 80 18 135/80 96 03/31/19 08:05 98.1 F 76 16 112/72 95 03/31/19 05:29 98.4 F 80 16 110/68 93 L Date Exam was Performed: 03/31/19 Time Exam was Performed: 15:17 - Problem List Review Problem List Initiated/Reviewed/Updated: No - My Orders Last 24 Hours: Active Orders 24 hr Category Date Time Status Patient Status [ADT] Routine ADT 03/30/19 23:53 Active Antiembolic Devices [RC] PER UNIT ROUTINE Care 03/31/19 10:03 Active Blood Glucose Check, Bedside [RC] ONETIME Care 03/30/19 19:06 Inactive Blood Glucose Check, Bedside [RC] QIDACANDBED Care 03/30/19 23:51 Inactive Blood Glucose Check, Bedside [RC] QIDACANDBED Care 03/30/19 23:53 Active Diabetes Education [RC] Click to Edit Care 03/30/19 23:53 Active Intake and Output [RC] 04,16 Care 03/30/19 23:53 Active May Shower [RC] ASDIRECTED Care 03/31/19 10:03 Active Oxygen Therapy [RC] PRN Care 03/30/19 23:53 Active Pulse Oximetry [RC] INTERMITTENT Care 03/30/19 23:53 Active RT Incentive Spirometry [RC] Q2HWA Care 03/30/19 23:53 Active VTE/DVT Education [RC] BID Care 03/30/19 23:53 Active Vital Signs [RC] Q4HR Care 03/30/19 23:53 Active ADA Diabetic [[employer] Diet] [DIET Diet 03/31/19 Lunch Active ] BASIC METABOLIC PANEL,BMP [CHEM] AM Lab 04/01/19 05:11 Ordered BASIC METABOLIC PANEL,BMP [CHEM] AM Lab 04/02/19 05:11 Ordered CBC WITH AUTO DIFF [HEME] AM Lab 04/01/19 05:11 Ordered CBC WITH AUTO DIFF [HEME] AM Lab 04/02/19 05:11 Ordered CULTURE ANAEROBIC + SMEAR [RM] Stat Lab 03/30/19 21:40 Results CULTURE BLOOD [BC] Stat Lab 03/30/19 19:17 Received CULTURE BLOOD [BC] Stat Lab 03/30/19 19:26 Received Acetaminophen/oxyCODONE [Percocet 325-5 MG] Med 03/30/19 23:53 Active 2 tab PO Q6H PRN Aspirin Med 03/31/19 10:15 Active 81 mg PO DAILY Docusate Sodium [Colace] Med 03/31/19 09:00 Active 100 mg PO BID HYDROmorphone [Dilaudid] Med 03/30/19 23:53 Active 1 mg IVPUSH Q4H PRN Insulin Lispro [HumaLOG] Med 03/31/19 11:00 Active See Protocol SUBCUT QIDACANDBED Piperacillin/Tazobactam [Piperacil-Tazobact] 4.5 gm Med 03/31/19 06:00 Active Sodium Chloride 0.9% [Normal Saline] 100 ml IV Q8H Simvastatin [Zocor] Med 03/31/19 21:00 Active 10 mg PO BEDTIME Vancomycin 2 gm Med 03/31/19 08:00 Active Sodium Chloride 0.9% [Normal Saline] 500 ml IV Q12H glipiZIDE [Glucotrol XL] Med 03/31/19 11:00 Active 10 mg PO DAILY lisinopriL [Prinivil] Med 03/31/19 11:00 Active 20 mg PO DAILY metFORMIN [Glucophage] Med 03/31/19 10:15 Active 1,000 mg PO DAILY Blood Culture x2 Reflex Set [OM.PC] Stat Oth 03/30/19 19:05 Ordered DVT/VTE Prophylaxis Reflex [OM.PC] Routine Oth 03/30/19 23:53 Ordered Glucose Management Sub Q Reflex [OM.PC] Routine Oth 03/30/19 23:53 Ordered SCD [Sequential Compression Device] [OM.PC] Routine Oth 03/31/19 10:03 Ordered Resuscitation Status Routine Resus Stat 03/30/19 21:52 Ordered Medication Orders Aspirin (Aspirin) 81 mg PO DAILY [facility] Last Admin: 03/31/19 10:18 Dose: 81 mg Docusate Sodium (Colace) 100 mg PO BID [facility] Last Admin: 03/31/19 08:40 Dose: 100 mg Glipizide (Glucotrol Xl) 10 mg PO DAILY [facility] Last Admin: 03/31/19 12:21 Dose: 10 mg Hydromorphone HCl (Dilaudid) 1 mg IVPUSH Q4H PRN PRN Reason: Pain (severe 7-10) Last Admin: 03/31/19 10:31 Dose: 1 mg Piperacillin Sod/Tazobactam (Sod 4.5 gm/ Sodium Chloride) 100 mls @ 25 mls/hr IV Q8H [facility] Last Admin: 03/31/19 14:48 Dose: 25 mls/hr Infusion: 03/31/19 09:21 Dose: 25 mls/hr Admin: 03/31/19 05:21 Dose: 25 mls/hr Vancomycin HCl 2 gm/ Sodium (Chloride) 500 mls @ 250 mls/hr IV Q12H [facility] Last Admin: 03/31/19 09:46 Dose: 250 mls/hr Insulin Human Lispro (Humalog) 0 unit SUBCUT QIDACANDBED [facility]; Protocol Last Admin: 03/31/19 12:22 Dose: 2 unit Lisinopril (Prinivil) 20 mg PO DAILY [facility] Last Admin: 03/31/19 12:22 Dose: 20 mg Metformin HCl (Glucophage) 1,000 mg PO DAILY [facility] Last Admin: 03/31/19 10:19 Dose: 1,000 mg Oxycodone/Acetaminophen (Percocet 325-5 Mg) 2 tab PO Q6H PRN PRN Reason: Pain (moderate 4-6) Simvastatin (Zocor) 10 mg PO BEDTIME [facility] - Assessment Assessment (Free Text/Narrative):: POD1 s/p I&D left scrotal abscess secondary to soft tissue infection. - continue IV Vanc and Zosyn at this time till cultures and sensitivity come back - continue SSI and metformin. - TID glucose checks + bedtime - Diabetic diet - ambulate TID - pain control Dispo: once converted to PO meds and wound infection improving.
[2019-03-31] MEDS ORDERED: Insulin Regular, Human 100 Units/ML 3 ML Vial SUBCUT ONE ×2 (21:09→21:52)
[2019-03-31] MEDS: Simvastatin 10 MG Tab PO SCH (21:45)
[2019-04-01] MEDS: Piperacillin/Tazobactam 4.5 GM in Sodium Chloride 0.9% 100 ML IV SCH ×4 (00:07→21:49)
[2019-04-01] MEDS: Docusate Sodium 100 MG Cap PO SCH ×2 (08:10→20:42)
[2019-04-01] MEDS: Aspirin 81 MG Tab.Chew PO SCH (08:11)
[2019-04-01] MEDS: glipiZIDE 5 MG Tab.ER PO SCH (08:12)
[2019-04-01] MEDS: Insulin Lispro 100 Units/ML 3 ML Vial SUBCUT SCH ×4 (08:12→21:49)
[2019-04-01] MEDS: Lisinopril 20 MG Tab PO SCH (08:12)
[2019-04-01] MEDS: HYDROmorphone 1 MG/ML Syringe IVPUSH PRN (10:51)
[2019-04-01] MEDS: Vancomycin 2 GM in Sodium Chloride 0.9% 500 ML IV SCH ×2 (10:52→19:22)
[2019-04-01] MEDS: metFORMIN 500 MG Tab PO SCH (12:36)
--- NOTE | 2019-04-01 14:41 | PCM.SURGPN ---
- General Info Date of Service: 04/01/19 POD#: 2 Post-Op Diagnosis: SOft tissue infection, left upper scrotum Functional Status: Reports: Pain Controlled, Tolerating Diet, Ambulating, Urinating Pain Score: 2 - Review of Systems General: Reports: No Symptoms HEENT: Reports: No Symptoms Pulmonary: Reports: No Symptoms Cardiovascular: Reports: No Symptoms Gastrointestinal: Reports: No Symptoms Genitourinary: Reports: No Symptoms Musculoskeletal: Reports: No Symptoms Skin: Reports: No Symptoms - Patient Data Vitals - Most Recent: Last Vital Signs Temp 97.5 F 04/01/19 13:02 Pulse 69 04/01/19 13:02 Resp 18 04/01/19 13:02 BP 114/81 04/01/19 13:02 Pulse Ox 98 04/01/19 13:02 Weight - Most Recent: 129.319 kg I&O - Last 24 Hours: Intake & Output 03/31/19 04/01/19 04/01/19 22:59 06:59 14:59 Intake Total 1850 1100 280 Output Total 750 800 Balance 1100 300 280 Lab Results Last 24 Hrs: Laboratory Results - last 24 hr 03/31/19 03/31/19 04/01/19 Range/Units 17:05 20:57 05:32 WBC 9.37 H (4.23-9.07) K/mm3 RBC 4.62 L (4.63-6.08) M/mm3 Hgb 12.4 L (13.7-17.5) gm/dl Hct 38.4 L (40.1-51.0) % MCV 83.1 (79.0-92.2) fl MCH 26.8 (25.7-32.2) pg MCHC 32.3 (32.2-35.5) g/dl RDW Std Deviation 40.7 (35.1-43.9) fL Plt Count 298 (163-337) K/mm3 MPV 9.9 (9.4-12.3) fl Neut % (Auto) 66.3 (34.0-67.9) % Lymph % (Auto) 23.8 (21.8-53.1) % [place] % (Auto) 6.7 (5.3-12.2) % Eos % (Auto) 2.9 (0.8-7.0) Baso % (Auto) 0.1 (0.1-1.2) % Neut # (Auto) 6.21 H (1.78-5.38) K/mm3 Lymph # (Auto) 2.23 (1.32-3.57) K/mm3 [place] # (Auto) 0.63 (0.30-0.82) K/mm3 Eos # (Auto) 0.27 (0.04-0.54) K/mm3 Baso # (Auto) 0.01 (0.01-0.08) K/mm3 Sodium (136-145) mEq/L Potassium (3.5-5.1) mEq/L Chloride (98-107) mEq/L Carbon Dioxide (21-32) mEq/L Anion Gap (5-15) BUN (7-18) mg/dL Creatinine (0.7-1.3) mg/dL Est Cr Clr Drug Dosing mL/min Estimated GFR (MDRD) (>60) mL/min BUN/Creatinine Ratio (14-18) Glucose (74-106) mg/dL POC Glucose 123 H 164 H (70-105) mg/dL Calcium (8.5-10.1) mg/dL 04/01/19 04/01/19 Range/Units 05:32 06:26 WBC (4.23-9.07) K/mm3 RBC (4.63-6.08) M/mm3 Hgb (13.7-17.5) gm/dl Hct (40.1-51.0) % MCV (79.0-92.2) fl MCH (25.7-32.2) pg MCHC (32.2-35.5) g/dl RDW Std Deviation (35.1-43.9) fL Plt Count (163-337) K/mm3 MPV (9.4-12.3) fl Neut % (Auto) (34.0-67.9) % Lymph % (Auto) (21.8-53.1) % [place] % (Auto) (5.3-12.2) % Eos % (Auto) (0.8-7.0) Baso % (Auto) (0.1-1.2) % Neut # (Auto) (1.78-5.38) K/mm3 Lymph # (Auto) (1.32-3.57) K/mm3 [place] # (Auto) (0.30-0.82) K/mm3 Eos # (Auto) (0.04-0.54) K/mm3 Baso # (Auto) (0.01-0.08) K/mm3 Sodium 136 (136-145) mEq/L Potassium 4.3 (3.5-5.1) mEq/L Chloride 102 (98-107) mEq/L Carbon Dioxide 24 (21-32) mEq/L Anion Gap 14.3 (5-15) BUN 10 (7-18) mg/dL Creatinine 0.8 (0.7-1.3) mg/dL Est Cr Clr Drug Dosing 109.25 mL/min Estimated GFR (MDRD) > 60 (>60) mL/min BUN/Creatinine Ratio 12.5 L (14-18) Glucose 163 H (74-106) mg/dL POC Glucose 165 H (70-105) mg/dL Calcium 9.3 (8.5-10.1) mg/dL [place] Results Last 24 Hrs: Microbiology 03/30/19 21:40 Gram Stain - Final Scrotum - Left Anaerobic Culture - Preliminary 03/30/19 19:17 Aerobic Blood Culture - Preliminary Blood - Venous NO GROWTH AFTER 1 DAY Anaerobic Blood Culture - Preliminary NO GROWTH AFTER 1 DAY 03/30/19 19:26 Aerobic Blood Culture - Preliminary Blood - Venous - Lab Draw NO GROWTH AFTER 1 DAY Anaerobic Blood Culture - Preliminary NO GROWTH AFTER 1 DAY Med Orders - Current: Current Medications Aspirin (Aspirin) 81 mg PO DAILY [facility] Last Admin: 04/01/19 08:11 Dose: 81 mg Docusate Sodium (Colace) 100 mg PO BID [facility] Last Admin: 04/01/19 08:10 Dose: Not Given Glipizide (Glucotrol Xl) 10 mg PO DAILY [facility] Last Admin: 04/01/19 08:12 Dose: 10 mg Vancomycin HCl 2 gm/ Sodium (Chloride) 500 mls @ 250 mls/hr IV Q12H [facility] Last Admin: 04/01/19 10:52 Dose: 250 mls/hr Piperacillin Sod/Tazobactam (Sod 4.5 gm/ Sodium Chloride) 100 mls @ 133.333 mls /hr IV Q8H [facility] Last Admin: 04/01/19 13:32 Dose: 133.333 mls/hr Insulin Human Lispro (Humalog) 0 unit SUBCUT QIDACANDBED [facility]; Protocol Last Admin: 04/01/19 12:36 Dose: 2 unit Lisinopril (Prinivil) 20 mg PO DAILY [facility] Last Admin: 04/01/19 08:12 Dose: 20 mg Metformin HCl (Glucophage) 1,000 mg PO DAILY [facility] Oxycodone/Acetaminophen (Percocet 325-5 Mg) 2 tab PO Q6H PRN PRN Reason: Pain (moderate 4-6) Simvastatin (Zocor) 10 mg PO BEDTIME [facility] Last Admin: 03/31/19 21:45 Dose: 10 mg Discontinued Medications Hydromorphone HCl (Dilaudid) 0.5 mg IVPUSH ONETIME ONE Stop: 03/30/19 19:10 Last Admin: 03/30/19 19:48 Dose: 0.5 mg Hydromorphone HCl (Dilaudid) 1 mg IVPUSH ONETIME ONE Stop: 03/30/19 21:10 Last Admin: 03/30/19 21:40 Dose: 1 mg Hydromorphone HCl (Dilaudid) 1 mg IVPUSH Q4H PRN PRN Reason: Pain (severe 7-10) Last Admin: 04/01/19 10:51 Dose: 1 mg Linezolid 600 mg/ Premix 300 mls @ 300 mls/hr IV ONETIME ONE Stop: 03/30/19 20:08 Last Admin: 03/30/19 20:13 Dose: 300 mls/hr Sodium Chloride (Normal Saline) 1,000 mls @ 500 mls/hr IV ASDIRECTED [facility] Last Admin: 03/30/19 19:48 Dose: 500 mls/hr Vancomycin HCl 2 gm/ Sodium (Chloride) 500 mls @ 250 mls/hr IV ONETIME ONE Stop: 03/30/19 19:09 Last Admin: 03/30/19 19:56 Dose: 250 mls/hr Piperacillin Sod/Tazobactam (Sod 4.5 gm/ Sodium Chloride) 100 mls @ 25 mls/hr IV Q8H [facility] Stop: 04/01/19 11:00 Last Admin: 04/01/19 06:23 Dose: 25 mls/hr Piperacillin Sod/Tazobactam (Sod 4.5 gm/ Sodium Chloride) 100 mls @ 200 mls/hr IV ONETIME ONE Stop: 03/30/19 22:44 Last Admin: 03/30/19 23:35 Dose: 200 mls/hr Insulin Human Regular (Humulin R) Confirm Administered Dose 300 unit .ROUTE .STK -MED ONE Stop: 03/30/19 21:45 Last Admin: 03/30/19 21:48 Dose: Not Given Insulin Human Regular (Humulin R) 8 unit SUBCUT ONETIME ONE Stop: 03/31/19 21:53 Iopamidol (Isovue-300 (61%)) 100 ml IVPUSH ONETIME ONE Stop: 03/30/19 20:19 Last Admin: 03/30/19 20:27 Dose: 100 ml Lidocaine/Epinephrine (Xylocaine 1% With Epinephrine 1:100,000) 20 ml INJECT ONETIME ONE Stop: 03/30/19 21:21 Last Admin: 03/30/19 21:40 Dose: 20 ml Metformin HCl (Glucophage) 1,000 mg PO DAILY [facility] Last Admin: 04/01/19 12:36 Dose: Not Given Metoclopramide HCl (Reglan) 10 mg IVPUSH ONETIME ONE Stop: 03/30/19 19:10 Last Admin: 03/30/19 19:48 Dose: 10 mg Sodium Chloride (Saline Flush) 10 ml FLUSH ONETIME PRN PRN Reason: KEEP VEIN OPEN Last Admin: 03/30/19 20:27 Dose: 10 ml Vancomycin HCl (Vancomycin) Confirm Administered Dose 1 gm .ROUTE .STK-MED ONE Stop: 03/30/19 19:27 Last Admin: 03/30/19 20:03 Dose: Not Given - Exam Wound/Incisions: Healing Well, Drainage (meager) General: Alert, Oriented, Cooperative, No Acute Distress HEENT: Pupils Equal Lungs: Clear to Auscultation, Normal Respiratory Effort Cardiovascular: Regular Rate, Regular Rhythm, No Murmurs GI/Abdominal Exam: Normal Bowel Sounds, Soft, Non-Tender, No Organomegaly Sepsis Event Note - Evaluation Sepsis Screening Result: No Definite Risk - Focused Exam Vital Signs: Vital Signs Temp Pulse Resp BP Pulse Ox 04/01/19 13:02 97.5 F 69 18 114/81 98 04/01/19 08:12 109/85 04/01/19 08:09 98.1 F 71 18 109/85 95 02/25/20 05:05 97.7 F 72 18 100/63 92 L Date Exam was Performed: 04/01/19 Time Exam was Performed: 14:38 - Problem List Review Problem List Initiated/Reviewed/Updated: No - My Orders Last 24 Hours: Active Orders 24 hr Category Date Time Status Communication Order [RC] BID Care 04/01/19 06:37 Active Communication Order [RC] QSHIFT Care 04/01/19 14:32 Active BASIC METABOLIC PANEL,BMP [CHEM] AM Lab 04/02/19 05:11 Ordered Piperacillin/Tazobactam [Piperacil-Tazobact] 4.5 gm Med 04/01/19 14:00 Active Sodium Chloride 0.9% [Normal Saline] 100 ml IV Q8H Simvastatin [Zocor] Med 03/31/19 21:00 Active 10 mg PO BEDTIME metFORMIN [Glucophage] Med 04/02/19 09:00 Active 1,000 mg PO DAILY Medication Orders Aspirin (Aspirin) 81 mg PO DAILY [facility] Last Admin: 04/01/19 08:11 Dose: 81 mg Admin: 03/31/19 10:18 Dose: 81 mg Docusate Sodium (Colace) 100 mg PO BID [facility] Last Admin: 04/01/19 08:10 Dose: Not Given Admin: 03/31/19 21:45 Dose: Not Given Admin: 03/31/19 08:40 Dose: 100 mg Glipizide (Glucotrol Xl) 10 mg PO DAILY [facility] Last Admin: 04/01/19 08:12 Dose: 10 mg Admin: 03/31/19 12:21 Dose: 10 mg Vancomycin HCl 2 gm/ Sodium (Chloride) 500 mls @ 250 mls/hr IV Q12H [facility] Last Admin: 04/01/19 10:52 Dose: 250 mls/hr Infusion: 03/31/19 23:44 Dose: 250 mls/hr Admin: 03/31/19 21:44 Dose: 250 mls/hr Infusion: 03/31/19 11:46 Dose: 250 mls/hr Admin: 03/31/19 09:46 Dose: 250 mls/hr Piperacillin Sod/Tazobactam (Sod 4.5 gm/ Sodium Chloride) 100 mls @ 133.333 mls /hr IV Q8H [facility] Last Admin: 04/01/19 13:32 Dose: 133.333 mls/hr Insulin Human Lispro (Humalog) 0 unit SUBCUT QIDACANDBED [facility]; Protocol Last Admin: 04/01/19 12:36 Dose: 2 unit Admin: 04/01/19 08:12 Dose: 1 unit Admin: 03/31/19 21:58 Dose: 1 unit Admin: 03/31/19 17:59 Dose: Not Given Admin: 03/31/19 12:22 Dose: 2 unit Lisinopril (Prinivil) 20 mg PO DAILY [facility] Last Admin: 04/01/19 08:12 Dose: 20 mg Admin: 03/31/19 12:22 Dose: 20 mg Metformin HCl (Glucophage) 1,000 mg PO DAILY [facility] Oxycodone/Acetaminophen (Percocet 325-5 Mg) 2 tab PO Q6H PRN PRN Reason: Pain (moderate 4-6) Simvastatin (Zocor) 10 mg PO BEDTIME [facility] Last Admin: 03/31/19 21:45 Dose: 10 mg - Plan Plan (Free Text/Narrative):: POD#2 I&D left scrotal abscess 2/2 soft tissue infection. - improving with abx. WBC normal. Will dc CBC - continue IV abx until sensitivities come back. Then will convert to PO meds and dc home - Will need teaching for dressing changes. RN will provide teaching to patient and family - Cont diet, ambulation
[2019-04-01] MEDS: Acetaminophen/oxyCODONE 325-5 MG Tab PO PRN (20:42)
[2019-04-01] MEDS: Simvastatin 10 MG Tab PO SCH (20:42)
[2019-04-02] MEDS: Piperacillin/Tazobactam 4.5 GM in Sodium Chloride 0.9% 100 ML IV SCH (06:05)
[2019-04-02] MEDS: Insulin Lispro 100 Units/ML 3 ML Vial SUBCUT SCH ×2 (06:08→11:30)
[2019-04-02] MEDS: Vancomycin 2 GM in Sodium Chloride 0.9% 500 ML IV SCH (08:18)
[2019-04-02] MEDS: glipiZIDE 5 MG Tab.ER PO SCH (08:26)
[2019-04-02] MEDS: Lisinopril 20 MG Tab PO SCH (08:27)
[2019-04-02] MEDS: Aspirin 81 MG Tab.Chew PO SCH (08:27)
[2019-04-02] MEDS: Docusate Sodium 100 MG Cap PO SCH (08:31)
[2019-04-02] MEDS ORDERED: metFORMIN 500 MG Tab PO SCH (09:00)
[2019-04-02] MEDS: Acetaminophen/oxyCODONE 325-5 MG Tab PO PRN (10:31)
[2019-04-02] MEDS ORDERED: Amoxicillin 500 MG Cap PO SCH (14:00)
--- NOTE | 2019-04-02 15:02 | PCM.DCSUM1 ---
Discharge Summary - Hospital Course Free Text/Narrative:: Patient has a left scrotal soft tissue infection with an abscess. Abscess was drained in the ED and wound packed. The patient received Iv antibiotics and responded well as pain and cellulitis decreased. Cultures showed Group B strep. IV antibiotics were discontinued and patient was transitioned to Amoxicillin for 7 additional days. Patient will follow up with me in clinic in 10 days for check. Patient was taught to perform dressing changes. We also emphasized that the patient control his blood sugars better. Diagnosis: Stroke: No - Discharge Data Discharge Date: 04/02/19 Discharge Disposition: Home, Self-Care 01 Condition: Good - Referral to Home Health Primary Care Physician: PCP Not In Area - Patient Summary/Data Hospital Course: See narrative. - Patient Instructions Diet: Diabetic Diet Activity: As Tolerated Driving: Do Not Drive Showering/Bathing: May Shower (Repack the wound after showering) Wound/Incision Care: Change Dressing Daily Notify Provider of: Fever, Increased Pain, Swelling and Redness, Drainage - Discharge Plan *PRESCRIPTION DRUG MONITORING PROGRAM REVIEWED*: Not Applicable *COPY OF PRESCRIPTION DRUG MONITORING REPORT IN PATIENT DAYAMI: Not Applicable Home Medications: Home Meds Aspirin 81 mg PO DAILY 03/30/19 [History] metFORMIN [Glucophage XR] 1,000 mg PO DAILY 03/30/19 [History] atorvaSTATin [Lipitor] 10 mg PO BEDTIME 03/31/19 [History] glipiZIDE [Glipizide Xl] 10 mg PO DAILY 03/31/19 [History] lisinopriL [Lisinopril] 20 mg PO DAILY 03/31/19 [History] Oxygen Therapy Mode: Room Air Patient Handouts: Type 2 Diabetes Mellitus, Diagnosis, Adult, Sepsis, Adult, Wound Infection, [id number], Type 2 Diabetes Mellitus, Self Care, Adult, Easy- to-Read, How to Change Your Dressing, [id number] Forms: ED Department Discharge Referrals: PCP,Not In Area [Primary Care Provider] - Akanksha Patton MD [Physician] - - Discharge Summary/Plan Comment DC Time >30 min.: Yes (Wound care teaching) - Patient Data Vitals - Most Recent: Last Vital Signs Temp 97.9 F 04/02/19 12:44 Pulse 65 04/02/19 12:44 Resp 18 04/02/19 12:44 BP 127/79 04/02/19 12:44 Pulse Ox 95 04/02/19 12:44 Weight - Most Recent: 127.006 kg I&O - Last 24 hours: Intake & Output 04/01/19 04/02/19 04/02/19 22:59 06:59 14:59 Intake Total 2820 1250 660 Output Total 700 1200 Balance 2120 50 660 Lab Results - Last 24 hrs: Laboratory Results - last 24 hr 04/01/19 04/01/19 04/01/19 Range/Units 11:13 17:03 20:47 Sodium (136-145) mEq/L Potassium (3.5-5.1) mEq/L Chloride (98-107) mEq/L Carbon Dioxide (21-32) mEq/L Anion Gap (5-15) BUN (7-18) mg/dL Creatinine (0.7-1.3) mg/dL Est Cr Clr Drug Dosing mL/min Estimated GFR (MDRD) (>60) mL/min BUN/Creatinine Ratio (14-18) Glucose (74-106) mg/dL POC Glucose 243 H 193 H 147 H (70-105) mg/dL Calcium (8.5-10.1) mg/dL Vancomycin Trough (10.0-20.0) 04/02/19 04/02/19 04/02/19 Range/Units 04:55 04:55 06:07 Sodium 139 (136-145) mEq/L Potassium 4.2 (3.5-5.1) mEq/L Chloride 102 (98-107) mEq/L Carbon Dioxide 25 (21-32) mEq/L Anion Gap 16.2 H (5-15) BUN 10 (7-18) mg/dL Creatinine 0.7 (0.7-1.3) mg/dL Est Cr Clr Drug Dosing 124.86 mL/min Estimated GFR (MDRD) > 60 (>60) mL/min BUN/Creatinine Ratio 14.3 (14-18) Glucose 136 H (74-106) mg/dL POC Glucose 147 H (70-105) mg/dL Calcium 9.2 (8.5-10.1) mg/dL Vancomycin Trough 16.2 (10.0-20.0) 04/02/19 Range/Units 11:12 Sodium (136-145) mEq/L Potassium (3.5-5.1) mEq/L Chloride (98-107) mEq/L Carbon Dioxide (21-32) mEq/L Anion Gap (5-15) BUN (7-18) mg/dL Creatinine (0.7-1.3) mg/dL Est Cr Clr Drug Dosing mL/min Estimated GFR (MDRD) (>60) mL/min BUN/Creatinine Ratio (14-18) Glucose (74-106) mg/dL POC Glucose 151 H (70-105) mg/dL Calcium (8.5-10.1) mg/dL Vancomycin Trough (10.0-20.0) LAKESHA Results - Last 24 hrs: Microbiology 03/30/19 19:17 Aerobic Blood Culture - Preliminary Blood - Venous NO GROWTH AFTER 2 DAYS Anaerobic Blood Culture - Preliminary NO GROWTH AFTER 2 DAYS 03/30/19 19:26 Aerobic Blood Culture - Preliminary Blood - Venous - Lab Draw NO GROWTH AFTER 2 DAYS Anaerobic Blood Culture - Preliminary NO GROWTH AFTER 2 DAYS 03/30/19 21:40 Gram Stain - Final Scrotum - Left Anaerobic Culture - Preliminary Beta Streptococcus Group B Med Orders - Current: Current Medications Amoxicillin (Amoxil) 500 mg PO Q8H [facility] Last Admin: 04/02/19 14:01 Dose: 500 mg Aspirin (Aspirin) 81 mg PO DAILY [facility] Last Admin: 04/02/19 08:27 Dose: 81 mg Docusate Sodium (Colace) 100 mg PO BID [facility] Last Admin: 04/02/19 08:31 Dose: Not Given Glipizide (Glucotrol Xl) 10 mg PO DAILY [facility] Last Admin: 04/02/19 08:26 Dose: 10 mg Insulin Human Lispro (Humalog) 0 unit SUBCUT QIDACANDBED [facility]; Protocol Last Admin: 04/02/19 11:30 Dose: 1 unit Lisinopril (Prinivil) 20 mg PO DAILY [facility] Last Admin: 04/02/19 08:27 Dose: 20 mg Metformin HCl (Glucophage) 1,000 mg PO DAILY [facility] Last Admin: 04/02/19 08:26 Dose: 1,000 mg Oxycodone/Acetaminophen (Percocet 325-5 Mg) 2 tab PO Q6H PRN PRN Reason: Pain (moderate 4-6) Last Admin: 04/02/19 10:31 Dose: 2 tab Simvastatin (Zocor) 10 mg PO BEDTIME [facility] Last Admin: 04/01/19 20:42 Dose: 10 mg Discontinued Medications Hydromorphone HCl (Dilaudid) 0.5 mg IVPUSH ONETIME ONE Stop: 03/30/19 19:10 Last Admin: 03/30/19 19:48 Dose: 0.5 mg Hydromorphone HCl (Dilaudid) 1 mg IVPUSH ONETIME ONE Stop: 03/30/19 21:10 Last Admin: 03/30/19 21:40 Dose: 1 mg Hydromorphone HCl (Dilaudid) 1 mg IVPUSH Q4H PRN PRN Reason: Pain (severe 7-10) Last Admin: 04/01/19 10:51 Dose: 1 mg Linezolid 600 mg/ Premix 300 mls @ 300 mls/hr IV ONETIME ONE Stop: 03/30/19 20:08 Last Admin: 03/30/19 20:13 Dose: 300 mls/hr Sodium Chloride (Normal Saline) 1,000 mls @ 500 mls/hr IV ASDIRECTED [facility] Last Admin: 03/30/19 19:48 Dose: 500 mls/hr Vancomycin HCl 2 gm/ Sodium (Chloride) 500 mls @ 250 mls/hr IV ONETIME ONE Stop: 03/30/19 19:09 Last Admin: 03/30/19 19:56 Dose: 250 mls/hr Piperacillin Sod/Tazobactam (Sod 4.5 gm/ Sodium Chloride) 100 mls @ 25 mls/hr IV Q8H [facility] Stop: 04/01/19 11:00 Last Admin: 04/01/19 06:23 Dose: 25 mls/hr Vancomycin HCl 2 gm/ Sodium (Chloride) 500 mls @ 250 mls/hr IV Q12H [facility] Last Admin: 04/02/19 08:18 Dose: 250 mls/hr Piperacillin Sod/Tazobactam (Sod 4.5 gm/ Sodium Chloride) 100 mls @ 200 mls/hr IV ONETIME ONE Stop: 03/30/19 22:44 Last Admin: 03/30/19 23:35 Dose: 200 mls/hr Piperacillin Sod/Tazobactam (Sod 4.5 gm/ Sodium Chloride) 100 mls @ 133.333 mls /hr IV Q8H [facility] Last Admin: 04/02/19 06:05 Dose: 133.333 mls/hr Insulin Human Regular (Humulin R) Confirm Administered Dose 300 unit .ROUTE .STK -MED ONE Stop: 03/30/19 21:45 Last Admin: 03/30/19 21:48 Dose: Not Given Insulin Human Regular (Humulin R) 8 unit SUBCUT ONETIME ONE Stop: 03/31/19 21:53 Iopamidol (Isovue-300 (61%)) 100 ml IVPUSH ONETIME ONE Stop: 03/30/19 20:19 Last Admin: 03/30/19 20:27 Dose: 100 ml Lidocaine/Epinephrine (Xylocaine 1% With Epinephrine 1:100,000) 20 ml INJECT ONETIME ONE Stop: 03/30/19 21:21 Last Admin: 03/30/19 21:40 Dose: 20 ml Metformin HCl (Glucophage) 1,000 mg PO DAILY [facility] Last Admin: 04/01/19 12:36 Dose: Not Given Metoclopramide HCl (Reglan) 10 mg IVPUSH ONETIME ONE Stop: 03/30/19 19:10 Last Admin: 03/30/19 19:48 Dose: 10 mg Sodium Chloride (Saline Flush) 10 ml FLUSH ONETIME PRN PRN Reason: KEEP VEIN OPEN Last Admin: 03/30/19 20:27 Dose: 10 ml Vancomycin HCl (Vancomycin) Confirm Administered Dose 1 gm .ROUTE .STK-MED ONE Stop: 03/30/19 19:27 Last Admin: 03/30/19 20:03 Dose: Not Given Vancomycin HCl (Pharmacy To Dose - Vancomycin) 1 dose .XX ASDIRECTED PRN PRN Reason: RX TO DOSE VANCOMYCIN
== END 2019-04-02 17:25 | disposition home or self-care (01) | DRG 989 ==
LOC: JD.ED 16:59 → JD.MS 21:50
PROVIDERS: ADMIT Surgery; ATTEND Surgery
PROC: 0V950ZZ Drainage of Scrotum, Open Approach (ICD-10-PCS; principal; 2019-03-30)
DX: E11.628 Type 2 diabetes mellitus with other skin complications (principal); N49.2 Inflammatory disorders of scrotum; I10 Essential (primary) hypertension; E78.5 Hyperlipidemia, unspecified; Z79.84 Long term (current) use of oral hypoglycemic drugs; Z87.891 Personal history of nicotine dependence; Z79.82 Long term (current) use of aspirin
CPT/HCPCS: 36415; 72193; 72193-26; 80048; 80053; 80202; 82962; 83036; 83605; 83735; 85007; 85025; 85027; 85610; 85730; 86140; 87040; 87075; 87076; 87077; 87181; 87186; 87205; 93005; 93010; 96365; 96366; 96367; 96368; 96375; 96376; 99285; 99285-25; A9270-GY; J1170; J1815-GY; J2020; J2543; J2765; J3370; J7030; J7040; J7050; Q9967